=== PATIENT | male | born 1965 | race Caucasian/White ===

== ENCOUNTER → 2023-03-22 | Outpatient (CLI) | payer BC ==
--- NOTE | 2023-03-24 13:40 | MR ---
EXAMINATION TYPE: MR Prostate wo/w con DATE OF EXAM: 03/22/2023 COMPARISON: None. INDICATION: Prostate cancer. PSA: 12.3 ng/ml on 27/09/2023 increased from 5.9 on January 27, 2022 Recent Biopsy and Date: February 08, 2023 Pathology Report (If Applicable): Right lateral base adenocarcinoma recent grade 3+4 = 7, involving a pproximately 80% of tissue measuring 5 mm in length with focal perineural invasion. Right base adenoc arcinoma Jonah grade 3+4 = 7, approximate 60% of tissue measuring 4.5 mm in length total. Lateral m id biopsy adenocarcinoma Jonah grade 3+4 = 7, approximately 20% of tissue measuring 1.5 mm in lengt h with perineural invasion. Right mid biopsy adenocarcinoma Jonah grade 3+4 = 7, approximate 90% of tissue measuring 8 mm in length. Right lateral apex adenocarcinoma [address] grade 3+4 = 7, approximat [place] 40% of tissue measuring 3.5 mm in length. Right apex adenocarcinoma [address] grade 3+4 = 7, involv ing 70% of tissue measuring 4 mm in length. Left base adenocarcinoma Jonah grade 3+4 = 7, approximately 80% of tissue measuring 7 mm in length. Left mid biopsy adenocarcinoma Jonah grade 3+4 = 7, approximately 90% of tissue measuring 9.5 mm i n length. Left apex adenocarcinoma Jonah grade 3+4 = 7, approximately 95% of tissue measuring 9 mm in length. TECHNIQUE: Examination was performed using a 3T MRI without an endorectal coil. Multiparametric imaging was perf ormed with T2 mutliplanar sequences, axial diffusion weighted imaging and dynamic contrast enhanced i maging, utilizing 9.5 mL intravenous Gadavist gadolinium contrast. FINDINGS: There is no clinically significant cancer identified. PROSTATE VOLUME: 3.8 cm SI x 4.2 cm AP x 5.2 cm LR Vol= 43.45 cc PSA DENSITY: 0.28 ng/ml/cc Small area of increased T1 signal consistent with hemorrhage in the anterior mid zone laterally on th e right axial image 19 makes evaluation at this level slightly suboptimal. Enlarged prostate gland is present. Peripheral zone is prominent. The peripheral zone shows area of m ild to moderate diminished signal on ADC mapping with mild increased signal on diffusion-weighted lorenzo ging measuring 6 to 7 mm involving the left mid zone showing T2 hyperintensity axial image 17. There is additional 7 to 8 mm rounded area of byvw-[id number] hypointensity on ADC mapping with mild hyper intensity on diffusion-weighted imaging in the left lateral apex with T2 hypointensity image 112 seri es 705. These areas show overall diffuse contrast enhancement. PI-RADS 4 lesions. Heterogeneous small size transitional zone. Seminal vesicles are within normal limits. Prostate capsu le is maintained. Xnqsm-di-[id number] free fluid in the pelvis of uncertain etiology axial image 33. Urinary bladder shows mild to moderate concentric trabeculation and wall thickening. Sigmoid colonic diverticulosis. There is overall heterogeneity and visualized osseous structures. Some areas are suspicious with marisol ed diminished T1 signal. Same day bone scan could reflect SuperScan appearance. IMPRESSION: Mildly enlarged prostate gland. A few slightly suspicious areas noted as detailed above. Abnormal appearance of the osseous structures in which pelvic osseous metastatic disease must be cons idered. Highest Assessment Category: 4 MRI Stage: T1c N0 M1? based on review of pelvic images. False negative rates for MRI range from 5-20% depending on risk profile. Assessment Categories: 1 ? Very low (clinically significant cancer is highly unlikely to be present) 2 ? Low (clinically significant cancer is unlikely to be present) 3 ? Intermediate (the presence of clinically significant cancer is equivocal) 4 ? High (clinically significant cancer is likely to be present) 5 ? Very high (clinically significant cancer is highly likely to be present)
== END | disposition home or self-care (01) ==
LOC: RADMRIMAIN 08:00
PROVIDERS: ATTEND Urology
DX: C61 Malignant neoplasm of prostate (principal)
CPT/HCPCS: 72197; A9585

== ENCOUNTER → 2023-03-22 | Outpatient (CLI) | payer BC ==
--- NOTE | 2023-03-22 13:51 | NM ---
EXAMINATION TYPE: NM bone scan whole body DATE OF EXAM: 03/22/2023 COMPARISON: NONE HISTORY: Prostate cancer Delayed whole-body scanning was performed following the injection of 22.3 mCi Tc 99m MDP. Images acq uired 3.75 hours post injection. FINDINGS: There is no increased radiotracer uptake to suggest metastatic disease to the bone or other suspiciou s abnormality. Normal excretion into the bladder is noted. Some contamination inferior to this or uri ne leak is noted. IMPRESSION: As above.
== END | disposition home or self-care (01) ==
LOC: RADNMMAIN 07:49
PROVIDERS: ATTEND Radiology Radiation Oncology
DX: C61 Malignant neoplasm of prostate (principal)
CPT/HCPCS: 72197; 78306; A9503; A9585

== ENCOUNTER → 2023-03-29 | Outpatient (CLI) | payer BC | END | disposition home or self-care (01) | LOC: LABWHC1 15:48 | PROVIDERS: ATTEND Radiology Radiation Oncology | DX: Z53.9 Procedure and treatment not carried out, unspecified reason (principal) ==

== ENCOUNTER → 2023-04-23 | Outpatient (CLI) | payer BC ==
--- NOTE | 2023-04-24 17:42 | PE ---
EXAMINATION TYPE: PET CT fusion skull to thigh DATE OF EXAM: 04/23/2023 CLINICAL INDICATION:Male, 57 years old with history of ILLUCCIX; TECHNIQUE: Following the intravenous administration of 6.0 mCi of Ga-68 Illuccix (PSMA), whole body images are performed from the skull base to the midthigh. Images are reviewed on the computer in th e coronal, axial, and sagittal planes. Reconstructed rotating images are created on independent work station and reviewed on the computer. A non-contrast CT is performed in conjunction with the PET sc an. COMPARISON: CT None, PET/CT None, MRI for 03/22/2023 FINDINGS: Mediastinal SUV mean is 0.4. Hepatic parenchyma SUV mean is 2.4. SKULL BASE AND NECK: No suspicious radiotracer activity. CHEST, MEDIASTINUM, AND HILAR REGION: No suspicious radiotracer activity. ABDOMEN AND PELVIS: Abnormal right tracer activity within the prostate gland predominantly involving the base peripheral zone with extension into the central gland. Max SUV 12.3. OSSEOUS STRUCTURES: No suspicious radiotracer activity. Hernia prior MRI likely representing heteroge nous fatty marrow with red marrow conversion. OTHER CT: Atherosclerosis of the vasculature. Mild gynecomastia changes bilaterally. Mild emphysema c hanges. Posterior dependent atelectasis changes. There is fat stranding changes within the mid abdomen involving multiple loops of bowel on the right. Series 3 image 192. No evidence for bowel obstruction. Evaluation slightly limited with noncontrast technique. Radiotracer activity within this loop of bowel maximum SUV 4.7 there may be a focus of pne umoperitoneum series 3 image 25. There is wall thickening of the bowel in this region measuring up to 8 mm. IMPRESSION 1. Findings compatible with primary prostate adenocarcinoma, involving the base of the prostate glan d. No abnormal osseous uptake at this time to suggest metastatic disease. No evidence for metastatic disease at this time. 2. Fat stranding changes in the mesentery surrounding multiple loops of bowel with bowel wall thicke mario and or foci of pneumoperitoneum. Findings compatible with history of Crohn's disease. No evidenc e of bowel obstruction.
== END | disposition home or self-care (01) ==
LOC: RADPETMAIN 14:52
PROVIDERS: ATTEND Radiology Radiation Oncology
DX: C61 Malignant neoplasm of prostate (principal)
CPT/HCPCS: 78815; A9596

== ENCOUNTER → 2023-07-06 | Outpatient (CLI) | payer BC ==
[2023-07-06 20:35] LABS: ALT 14 U/L (10-49); AST 13 U/L (14-35); Alkaline Phosphatase 47 U/L (41-126); Blood Urea Nitrogen 11.9 mg/dL (9.0-27.0); Calcium 9.2 mg/dL (8.7-10.3); Chloride 104 mmol/L (96-109); Globulin 2.5 d/dL (1.6-3.3); Glucose 90 mg/dL (70-110); Potassium 4.4 mmol/L (3.5-5.5); Sodium 141 mmol/L (135-145); Total Bilirubin 0.3 mg/dL (0.3-1.2); Total Protein 6.5 d/dL (6.2-8.2)
[2023-07-06 21:38] LABS: Basophils # (A) 0.06 X 10*3/uL (0.00-0.10); Basophils % (A) 0.7 %; Eosinophils # (A) 0.39 X 10*3/uL (0.04-0.35); Eosinophils % (A) 4.5 %; HCT 41.4 % (39.6-50.0); HGB 13.7 d/dL (13.0-17.0); Lymphocytes # (A) 1.39 X 10*3/uL (0.90-5.00); Lymphocytes % (A) 15.9 %; MCH 30.2 pg (27.0-32.0); MCHC 33.1 d/dL (32.0-37.0); MCV 91.4 FL (80.0-97.0); Mean Platelet Volume 10.8 FL (9.5-12.2); Monocytes # (A) 0.53 X 10*3/uL (0.20-1.00); Monocytes % (A) 6.1 %; NRBC Per 100 WBC 0 X 10*3/uL (0.00-0.01); Neutrophils # (A) 6.34 X 10*3/uL (1.80-7.70); Neutrophils % (A) 72.6 %; Platelet Count 360 X 10*3/uL (140-440); RBC 4.53 X 10*6/uL (4.40-5.60); RDW 14.5 % (11.5-14.5); WBC 8.73 X 10*3/uL (4.50-10.00)
[2023-07-06 22:41] LABS: Erythrocyte Sedimentation Rate 11 mm/Hr (0-20)
== END | disposition home or self-care (01) ==
LOC: LABWHC1 14:14
PROVIDERS: ATTEND Internal Medicine Gastroenterology
DX: K50.90 Crohn's disease, unspecified, without complications (principal)
CPT/HCPCS: 36415; 80053; 85025; 85652; 86140

== ENCOUNTER → 2023-11-01 | Outpatient (CLI) | payer BC ==
[2023-11-02 03:51] LABS: Prostate Specific Antigen <0.01 ng/mL (0.000-4.500)
== END | disposition home or self-care (01) ==
LOC: LABWHC1 13:17
PROVIDERS: ATTEND Urology
DX: C61 Malignant neoplasm of prostate (principal)
CPT/HCPCS: 36415; 84153; 84403

== ENCOUNTER → 2023-12-16 | Outpatient (CLI) | payer BC ==
[2023-12-16 18:16] LABS: Basophils # (A) 0.05 X 10*3/uL (0.00-0.10); Basophils % (A) 0.7 %; Eosinophils # (A) 0.12 X 10*3/uL (0.04-0.35); Eosinophils % (A) 1.8 %; HCT 38.1 % (39.6-50.0); HGB 12.7 g/dL (13.0-17.0); Lymphocytes # (A) 1.52 X 10*3/uL (0.90-5.00); Lymphocytes % (A) 22.3 %; MCH 30.2 pg (27.0-32.0); MCHC 33.3 g/dL (32.0-37.0); MCV 90.5 FL (80.0-97.0); Mean Platelet Volume 10.5 FL (9.5-12.2); Monocytes # (A) 0.43 X 10*3/uL (0.20-1.00); Monocytes % (A) 6.3 %; NRBC Per 100 WBC 0 X 10*3/uL (0.00-0.01); Neutrophils # (A) 4.66 X 10*3/uL (1.80-7.70); Neutrophils % (A) 68.5 %; Platelet Count 293 X 10*3/uL (140-440); RBC 4.21 X 10*6/uL (4.40-5.60); RDW 12.6 % (11.5-14.5); WBC 6.81 X 10*3/uL (4.50-10.00)
== END | disposition home or self-care (01) ==
LOC: LABWHC1 14:39
PROVIDERS: ATTEND Surgery
DX: Z01.812 Encounter for preprocedural laboratory examination (principal); K43.0 Incisional hernia with obstruction, without gangrene; R00.1 Bradycardia, unspecified
CPT/HCPCS: 36415; 85025; 86850; 86900; 86901; 93005

== ENCOUNTER 2023-12-28 08:38 | Day surgery (SDC) | payer BC ==
[~2023-12-28 08:38] MED LIST: DEXAMETHASONE SOD PHOSPHATE 4 MG/ML 1 ML VIAL IV ONE; HYDROmorphone 0.5 MG/0.5 ML SYRINGE IVP PRN; LACTATED RINGERS 1,000 ML IV SCH; LIDOCAINE 1% (10MG/ML) FOR IV START INTRADERMA PRN; MIDAZOLAM 2 MG/2 ML VIAL IV PRN; ONDANSETRON 4 MG/2 ML VIAL IVP ONE
[2023-12-28] MEDS ORDERED: ACETAMINOPHEN TAB 500 MG TAB ONE (09:32)
[2023-12-28] MEDS ORDERED: ACETAMINOPHEN TAB 500 MG TAB PO ONE (09:41)
[2023-12-28] MEDS ORDERED: ONDANSETRON 4 MG/2 ML VIAL IVP ONE (09:42)
[2023-12-28] MEDS ORDERED: DEXAMETHASONE SOD PHOSPHATE 4 MG/ML 1 ML VIAL IVP ONE (09:43)
[2023-12-28] MEDS ORDERED: LACTATED RINGERS 1,000 ML IV ONE ×2 (09:50→11:03)
[2023-12-28] MEDS ORDERED: MIDAZOLAM 2 MG/2 ML VIAL IVP ONE (09:53)
[2023-12-28] MEDS ORDERED: KETAMINE HCL IN 0.9 % NACL 50 MG/5 ML SYRINGE ONE (10:10)
[2023-12-28] MEDS ORDERED: DEXAMETHASONE SOD PHOSPHATE 4 MG/ML 1 ML VIAL ONE (10:10)
[2023-12-28] MEDS ORDERED: ceFAZolin 1,000 MG VIAL ONE (10:10)
[2023-12-28] MEDS ORDERED: MIDAZOLAM 2 MG/2 ML VIAL ONE (10:10)
[2023-12-28] MEDS ORDERED: ROPIVACAINE 5 MG/ML 30 ML VIAL ONE (10:10)
[2023-12-28] MEDS ORDERED: SODIUM CHLORIDE 0.9% 100 ML BAG ONE (10:10)
[2023-12-28] MEDS ORDERED: HYDROmorphone (PF) 1 MG/ML ONE (10:10)
[2023-12-28] MEDS ORDERED: GLYCOPYRROLATE 0.2 MG/ML 2 ML VIAL ONE (10:10)
[2023-12-28] MEDS ORDERED: KETOROLAC 15 MG/ML 1 ML VIAL ONE (10:10)
[2023-12-28] MEDS ORDERED: NEOSTIGMINE 1 MG/ML 10 ML VIAL ONE (10:10)
[2023-12-28] MEDS ORDERED: fentaNYL (PF) 50 MCG/ML 2 ML AMP ONE (10:10)
[2023-12-28] MEDS ORDERED: PROPOFOL 10 MG/ML 20 ML VIAL IV ONE (10:10)
[2023-12-28] MEDS ORDERED: ROCURONIUM 10 MG/ML (5 ML VIAL) IV ONE (10:10)
[2023-12-28] MEDS ORDERED: SUCCINYLCHOLINE CHLORIDE 200 MG/10 ML VIAL IV ONE (10:10)
[2023-12-28] MEDS ORDERED: BUPIVACAINE (PF) 0.25% 30 ML VIAL SQ ONE ×3 (10:11→11:06)
[2023-12-28] MEDS ORDERED: CEFOXITIN IV ONE ×2 (10:16)
[2023-12-28] MEDS ORDERED: SODIUM CHLORIDE 0.9% IV ONE ×2 (10:16)
[2023-12-28] MEDS ORDERED: LIDOCAINE 2%-EPI 1:100,000 20 ML VIAL SQ ONE (10:37)
--- NOTE | 2023-12-28 11:19 | P.OP ---
Date of Procedure: 12/28/23 Preoperative Diagnosis: Incisional hernia Postoperative Diagnosis: Incisional hernia Procedure(s) Performed: Laparoscopic robotic cyst repair of incisional hernia Transversus abdominis plane block Anesthesia: MARIA M Surgeon: Fausto Nunez Estimated Blood Loss (ml): 5 Pathology: none sent Condition: stable Disposition: PACU Description of Procedure: The patient was placed on the operating table in the supine position. He received general anesthesia. His abdomen was prepped and draped usual fashion. Using a 5 mm optical trocar under direct visualization the peritoneal cavity was entered in the left upper quadrant. The abdomen was then insufflated. The laparoscope was placed back into the perineal cavity. Next a 8 mm robotic trocar was placed in the left lower quadrant and a 12 mm robotic trocar was placed in the left lateral position. The original 5 mm trocar was exchanged for a 8 mm robotic trocar. A four-quadrant transverses abdominal plane block was performed with 1% local Xylocaine. The patient's placed in the left side up position. And the patient was docked to the robot. The incisional hernia was visualized. Using hook cautery the peritoneum over the incisional hernia was excised. The fascial opening was repaired using 0V LOC suture. Next a piece of 11 cm round ventral light ST mesh was placed into the. Cavity and secured with 2 OV lock suture. The patient was undocked the robot. The needles were retrieved. The fascia of the 12 mm trocar site was closed with 0 Ethibond suture. Skin was closed interrupted 3-0 Monocryl suture. Dermabond dressings was applied. Patient tolerated procedure well and was sent to recovery room stable condition.
--- NOTE | 2023-12-28 11:40 | P.ANPRN ---
Procedure Note - Anesthesia - Nerve Block Performed Bilateral Erector Spinae Single Time Out Performed: Yes Date of Procedure: 12/28/23 Procedure Start Time: 09:52 Procedure Stop Time: 10:04 Location of Patient: PreOp Indication: Acute Post-Operative Pain, Requested by Surgeon Sedation Type: Sedate with meaningful contact maintained Preparation: Sterile Prep Position: Prone Needle Types: Pajunk Needle Gauge: 21 Ultrasound used to visualize needle placement: Yes Ultrasound used to observe medication spread: Yes Blood Aspirated: No Pain Paresthesia on Injection Noted: No Resistance on Injection: Normal Image Stored and Saved: Yes Events: Uneventful and Well Tolerated (Ropivacaine 0.5% 15 cc plus normal saline 10 cc plus dexamethasone 4 mg continued bilaterally at L1)
[2023-12-28 11:42] VITALS: TEMP 97
[2023-12-28 12:12] VITALS: RESP 16
[2023-12-28 12:41] VITALS: BP 156/85; PULSE 54
== END 2023-12-28 12:54 | disposition home or self-care (01) ==
LOC: OR 08:38
PROVIDERS: ATTEND Surgery
DX: K43.2 Incisional hernia without obstruction or gangrene (principal); K50.90 Crohn's disease, unspecified, without complications; K21.9 Gastro-esophageal reflux disease without esophagitis; Z85.46 Personal history of malignant neoplasm of prostate; Z79.899 Other long term (current) drug therapy; Z98.890 Other specified postprocedural states
CPT/HCPCS: 49591; S2900; 64999

== ENCOUNTER → 2024-01-28 | Outpatient (CLI) | payer BC ==
[2024-01-28 18:33] LABS: ALT 14 U/L (10-49); AST 13 U/L (14-35)
[2024-01-28 18:58] LABS: Prostate Specific Antigen <0.01 ng/mL (0.000-4.500)
== END | disposition home or self-care (01) ==
LOC: LABWHC1 14:17
PROVIDERS: ATTEND Urology
DX: C61 Malignant neoplasm of prostate (principal); K76.9 Liver disease, unspecified
CPT/HCPCS: 36415; 84153; 84450; 84460

== ENCOUNTER → 2024-02-04 | Day surgery (SDC) | payer BC ==
[2024-02-04 08:57] VITALS: BP 113/75; PULSE 58; RESP 18; TEMP 98
[2024-02-04] MEDS: GLUCAGON 1 MG/ML VIAL IM STA (09:31)
--- NOTE | 2024-02-06 17:13 | MR ---
EXAMINATION TYPE: MR Enterography DATE OF EXAM: 02/04/2024 10:14 AM COMPARISON: 04/23/2023 at/CT CLINICAL INDICATION: Male 58 years old with a history of K50.90 Crohn's disease. LLQ abdominal pain, Crohn's disease, hx prostate cancer. TECHNIQUE: Standard multiplanar, multisequence imaging of the abdomen is performed without and with I V contrast, patient is injected with 1350 mL intravenous Gadavist gadolinium contrast. Oral NeuLumEX was given as per enterography protocol. FINDINGS: LOWER CHEST: No significant findings. ABDOMEN Bowel: Circumferential terminal ileum wall thickening measuring up to 5 mm near the ileocecal valve. This extends a short distance upstream where there is tethering of multiple loops of terminal ileum. There is low T1 signal extending between compatible with fistula formation series 801 image 55 . Ther e is upstream dilation of the small bowel loop entering this region series 501 image 12 and relativel y nondistention of the remainder of the bowel extending to the cecum. Another suspected fistula on se chung 501 image 11 attending from this region of terminal ileum to a loop of bowel upstream is present . This grouped loop of terminal ileum does demonstrate mucosal hyperenhancement on postcontrast imagi ng. The small bowel distention is inadequate proximally. No definite evidence to suggest abnormal bowel wall thickening involving a small bowel or large bowel. No evidence of bowel obstruction. No evidenc e for mucosal hyperenhancement, stricture or fistulous tract formation. Peritoneum: No evidence of pneumoperitoneum, free fluid, or adenopathy. Liver: Unremarkable. Gallbladder and Bile ducts: Unremarkable. Pancreas: Unremarkable. Spleen: Unremarkable. Adrenal glands: Unremarkable. Kidneys: Unremarkable. Bladder: Unremarkable. Reproductive: Unremarkable. Lymph Nodes: Vasculature: Unremarkable. No aortic aneurysm. Musculoskeletal: The osseous structures appear intact. Abdominal wall: Unremarkable. IMPRESSION: Evidence of active Crohn's disease with sequela of chronic Crohn's disease. Circumferential wall thic kening of the terminal ileum with multiple loops of terminal ileum tethered together demonstrating mu ltidirectional fistula formation between them. Fistula extending to other loops of bowel also present . There is at least a partial bowel obstruction from this area of active Crohn's disease.
== END ==
LOC: RADMRIMAIN 07:55
PROVIDERS: ATTEND Internal Medicine Gastroenterology
DX: K50.90 Crohn's disease, unspecified, without complications (principal); Z85.46 Personal history of malignant neoplasm of prostate
CPT/HCPCS: 96372; 72197; 74183; J1610; A9585

== ENCOUNTER → 2024-02-16 | Outpatient (CLI) | payer BC ==
[2024-02-16 17:00] LABS: Basophils # (A) 0.03 X 10*3/uL (0.00-0.10); Basophils % (A) 0.5 %; Eosinophils # (A) 0.04 X 10*3/uL (0.04-0.35); Eosinophils % (A) 0.6 %; HCT 38.3 % (39.6-50.0); HGB 13.1 g/dL (13.0-17.0); Lymphocytes # (A) 1.16 X 10*3/uL (0.90-5.00); Lymphocytes % (A) 17.8 %; MCH 29.7 pg (27.0-32.0); MCHC 34.2 g/dL (32.0-37.0); MCV 86.8 FL (80.0-97.0); Mean Platelet Volume 10.3 FL (9.5-12.2); Monocytes # (A) 0.41 X 10*3/uL (0.20-1.00); Monocytes % (A) 6.3 %; NRBC Per 100 WBC 0 X 10*3/uL (0.00-0.01); Neutrophils # (A) 4.87 X 10*3/uL (1.80-7.70); Neutrophils % (A) 74.6 %; Platelet Count 321 X 10*3/uL (140-440); RBC 4.41 X 10*6/uL (4.40-5.60); RDW 12.5 % (11.5-14.5); WBC 6.52 X 10*3/uL (4.50-10.00)
[2024-02-16 17:21] LABS: Erythrocyte Sedimentation Rate 10 mm/Hr (0-20)
[2024-02-16 17:31] LABS: ALT 13 U/L (10-49); AST 14 U/L (14-35); Albumin/Globulin Ratio 1.74 Ratio (1.60-3.17); Alkaline Phosphatase 61 U/L (41-126); Blood Urea Nitrogen 11.2 mg/dL (9.0-27.0); Calcium 9.3 mg/dL (8.7-10.3); Carbon Dioxide 26.6 mmol/L (21.6-31.8); Chloride 106 mmol/L (96-109); Globulin 2.3 g/dL (1.6-3.3); Glucose 92 mg/dL (70-110); Potassium 3.5 mmol/L (3.5-5.5); Sodium 145 mmol/L (135-145); Total Bilirubin 0.3 mg/dL (0.3-1.2); Total Protein 6.3 g/dL (6.2-8.2)
[2024-02-16 17:52] LABS: Hepatitis B Surface Antigen Nonreactive; Hepatitis C IgG Antibody Nonreactive
== END | disposition home or self-care (01) ==
LOC: LABWHC1 11:09
PROVIDERS: ATTEND Internal Medicine Gastroenterology
DX: K50.90 Crohn's disease, unspecified, without complications (principal)
CPT/HCPCS: 36415; 80053; 85025; 85652; 86140; 86480; 86704; 86803; 87340

== ENCOUNTER → 2024-03-08 | Outpatient (CLI) | payer BC ==
--- NOTE | 2024-03-08 14:22 | CT ---
EXAMINATION TYPE: CT abdomen pelvis w con DATE OF EXAM: 03/08/2024 COMPARISON: PET/CT 04/23/2023 INDICATION: llq PAIN DLP: 941.3 mGycm, Automated exposure control for dose reduction was used. CONTRAST: 100 mL of Isovue 300. Study performed with Oral Contrast TECHNIQUE: Axial images were obtained from above the diaphragm to the pubic rami in the axial plane a t 5 mm thick sections. Reconstructed images are reviewed on the computer in the coronal plane. FINDINGS: Limited CT sections are obtained the lung bases. The lung bases are clear. CT ABDOMEN: Liver: Normal Spleen: Normal Pancreas: Normal Adrenal glands: The adrenal glands are normal. Gallbladder: Normal Kidneys: No masses are evident. No hydronephrosis is present. No cysts are present. Delayed images were obtained through the kidneys, which remain unremarkable. Aorta: Vascular calcification is within the aorta. Inferior vena cava: Normal. CT PELVIS: There is diffuse thickening through the hepatic flexure. Correlate for colitis. This area was abnorma l on the PET/CT. Consider posterior evaluation with colonoscopy. There is a report of prior Crohn's d isease which could be considered within the differential. The distal sigmoid colon appears normal. Si gnificant diverticular changes are not evident. No suspicious inflammatory changes or wall thickening is evident left lower quadrant. There are loops of bowel lacking oral contrast or incompletely diste nded limiting their evaluation. Appendix: Normal as visualized. Urinary bladder: Normal. Genitourinary structures: Prostate is not well visualized Osseous structures: No suspicious lytic or sclerotic lesions. IMPRESSION: 1. Hepatic flexure wall thickening of the colon. Correlate for colitis. Follow-up is recommended. 2. Left lower quadrant abnormality to account for pain is not identified.
== END | disposition home or self-care (01) ==
LOC: RADCTMAIN 10:25
PROVIDERS: ATTEND Surgery
DX: K50.90 Crohn's disease, unspecified, without complications (principal); K31.89 Other diseases of stomach and duodenum
CPT/HCPCS: 74177; Q9967

== ENCOUNTER → 2024-08-01 | Outpatient (CLI) | payer BC ==
[2024-08-01 16:22] LABS: Appearance,Urine Clear (Clear); Bilirubin,Urine Negative (Negative); Blood,Urine Negative (Negative); Color,Urine Yellow (Yellow); Ketones,Urine Negative (Negative); Nitrite,Urine Negative (Negative); Specific Gravity,Urine 1.023 (1.001-1.030); Urobilinogen,Urine 0.2 E.U./DL
[2024-08-01 16:48] LABS: HGB 13.8 g/dL (13.0-17.0); MCH 29.8 pg (27.0-32.0); MCHC 33.7 g/dL (32.0-37.0); MCV 88.6 FL (80.0-97.0); NRBC Per 100 WBC 0 X 10*3/uL (0.00-0.01); Platelet Count 256 X 10*3/uL (140-440); RBC 4.63 X 10*6/uL (4.40-5.60); RDW 12.7 % (11.5-14.5); WBC 6.64 X 10*3/uL (4.50-10.00)
[2024-08-01 17:12] LABS: Chol/HDL Ratio 2.67 Ratio; Magnesium 1.7 mg/dL (1.5-2.4); VLDL Calculation 11.54 mg/dL (5.00-40.00)
[2024-08-01 17:13] LABS: ALT 20 U/L (10-49); AST 19 U/L (14-35); Albumin 4.1 g/dL (3.8-4.9); Albumin/Globulin Ratio 1.86 Ratio (1.60-3.17); Alkaline Phosphatase 68 U/L (41-126); BUN/Creat Ratio 18.88 Ratio (12.00-20.00); Blood Urea Nitrogen 15.1 mg/dL (9.0-27.0); Calcium 9.1 mg/dL (8.7-10.3); Carbon Dioxide 25.5 mmol/L (21.6-31.8); Chloride 103 mmol/L (96-109); Globulin 2.2 g/dL (1.6-3.3); Glucose 97 mg/dL (70-110); LDL Cholesterol,Calculated 74.9 mg/dL (0.0-131.0); Potassium 4.9 mmol/L (3.5-5.5); Sodium 139 mmol/L (135-145); Total Bilirubin 0.5 mg/dL (0.3-1.2); Total Protein 6.3 g/dL (6.2-8.2)
[2024-08-01 18:05] LABS: Prostate Specific Antigen <0.01 ng/mL (0.000-4.500)
== END | disposition home or self-care (01) ==
LOC: LABWHC1 10:08
PROVIDERS: ATTEND Urology
DX: Z00.00 Encounter for general adult medical examination without abnormal findings (principal); C61 Malignant neoplasm of prostate
CPT/HCPCS: 36415; 80053; 80061; 81003; 82306; 82607; 83036; 83735; 84153; 84403; 85027

== ENCOUNTER → 2024-08-04 | Outpatient (CLI) | payer BC | END | disposition home or self-care (01) | LOC: LABWHC1 15:12 | PROVIDERS: ATTEND Family Medicine | DX: K50.90 Crohn's disease, unspecified, without complications (principal) | CPT/HCPCS: 36415; 83921 ==

== ENCOUNTER → 2025-01-29 | Outpatient (CLI) | payer BC ==
[2025-01-29 16:32] LABS: Prostate Specific Antigen <0.01 ng/mL (0.000-4.500)
== END | disposition home or self-care (01) ==
LOC: LABWHC1 11:20
PROVIDERS: ATTEND Family Medicine
DX: C61 Malignant neoplasm of prostate (principal)
CPT/HCPCS: 36415; 84153; 84403

== ENCOUNTER → 2025-02-28 | Outpatient (CLI) | payer BC ==
[2025-02-28 15:04] LABS: Basophils # (A) 0.04 X 10*3/uL (0.00-0.10); Basophils % (A) 0.6 %; Eosinophils # (A) 0.08 X 10*3/uL (0.04-0.35); Eosinophils % (A) 1.2 %; HCT 41.2 % (39.6-50.0); HGB 13.9 g/dL (13.0-17.0); Lymphocytes # (A) 1.18 X 10*3/uL (0.90-5.00); Lymphocytes % (A) 17.5 %; MCH 29.6 pg (27.0-32.0); MCHC 33.7 g/dL (32.0-37.0); MCV 87.8 FL (80.0-97.0); Mean Platelet Volume 10.6 FL (9.5-12.2); Monocytes # (A) 0.38 X 10*3/uL (0.20-1.00); Monocytes % (A) 5.6 %; NRBC Per 100 WBC 0 X 10*3/uL (0.00-0.01); Neutrophils # (A) 5.03 X 10*3/uL (1.80-7.70); Neutrophils % (A) 74.8 %; Platelet Count 264 X 10*3/uL (140-440); RBC 4.69 X 10*6/uL (4.40-5.60); WBC 6.73 X 10*3/uL (4.50-10.00)
[2025-02-28 15:13] LABS: ALT 11 U/L (10-49); AST 17 U/L (14-35); Albumin 3.9 g/dL (3.8-4.9); Albumin/Globulin Ratio 1.77 Ratio (1.60-3.17); Alkaline Phosphatase 60 U/L (41-126); BUN/Creat Ratio 14.43 Ratio (12.00-20.00); Blood Urea Nitrogen 10.1 mg/dL (9.0-27.0); Calcium 8.7 mg/dL (8.7-10.3); Carbon Dioxide 26.1 mmol/L (21.6-31.8); Chloride 107 mmol/L (96-109); Globulin 2.2 g/dL (1.6-3.3); Glucose 102 mg/dL (70-110); Potassium 4.5 mmol/L (3.5-5.5); Sodium 141 mmol/L (135-145); Total Bilirubin 0.3 mg/dL (0.3-1.2); Total Protein 6.1 g/dL (6.2-8.2)
[2025-02-28 16:00] LABS: Erythrocyte Sedimentation Rate 7 mm/Hr (0-20)
== END | disposition home or self-care (01) ==
LOC: LABWHC1 12:36
PROVIDERS: ATTEND Internal Medicine Gastroenterology
DX: K50.90 Crohn's disease, unspecified, without complications (principal)
CPT/HCPCS: 36415; 80053; 85025; 85652; 86140

== ENCOUNTER → 2025-05-08 | Outpatient (CLI) | payer BC ==
[2025-05-08 19:33] LABS: ALT 10 U/L (10-49); AST 17 U/L (14-35); Alkaline Phosphatase 51 U/L (41-126); BUN/Creat Ratio 12.25 Ratio (12.00-20.00); Blood Urea Nitrogen 9.8 mg/dL (9.0-27.0); Calcium 8.8 mg/dL (8.7-10.3); Carbon Dioxide 25.2 mmol/L (21.6-31.8); Chloride 107 mmol/L (96-109); Globulin 2.1 g/dL (1.6-3.3); Glucose 88 mg/dL (70-110); Potassium 4.3 mmol/L (3.5-5.5); Sodium 142 mmol/L (135-145); Total Bilirubin 0.3 mg/dL (0.3-1.2); Total Protein 6.1 g/dL (6.2-8.2)
[2025-05-08 20:15] LABS: Basophils # (A) 0.04 X 10*3/uL (0.00-0.10); Basophils % (A) 0.6 %; Eosinophils # (A) 0.09 X 10*3/uL (0.04-0.35); Eosinophils % (A) 1.4 %; HCT 39.7 % (39.6-50.0); HGB 13.3 g/dL (13.0-17.0); Lymphocytes # (A) 1.35 X 10*3/uL (0.90-5.00); Lymphocytes % (A) 21.7 %; MCH 29.6 pg (27.0-32.0); MCHC 33.5 g/dL (32.0-37.0); MCV 88.2 FL (80.0-97.0); Mean Platelet Volume 11.2 FL (9.5-12.2); Monocytes # (A) 0.39 X 10*3/uL (0.20-1.00); Monocytes % (A) 6.3 %; NRBC Per 100 WBC 0 X 10*3/uL (0.00-0.01); Neutrophils # (A) 4.35 X 10*3/uL (1.80-7.70); Neutrophils % (A) 69.8 %; Platelet Count 269 X 10*3/uL (140-440); RDW 13.3 % (11.5-14.5); WBC 6.23 X 10*3/uL (4.50-10.00)
== END | disposition home or self-care (01) ==
LOC: LABWHC1 15:37
PROVIDERS: ATTEND Internal Medicine Gastroenterology
DX: K50.90 Crohn's disease, unspecified, without complications (principal)
CPT/HCPCS: 36415; 80053; 85025; 86480

== ENCOUNTER → 2025-06-04 | Outpatient (CLI) | payer BC ==
--- NOTE | 2025-06-04 10:21 | MR ---
INDICATION: Patient age:Male; 59 years old; Reason for study: M54.6 RADICULOPATHY, LUMB REGION; [facility]. COMPARISONS: CT abdomen and pelvis 03/08/2024. TECHNIQUE: Multi planar, multi sequence imaging was performed utilizing: T1-weighted, T2-weighted, a nd turbo inversion recovery imaging of the lumbar spine. The patient was not given contrast. FINDINGS: The lumbar vertebral bodies do have preserved heights. Mild levocurvature of the lumbar sp ine with apex at L3-L4. Grade 1 retrolisthesis of L3 on L4. L2 level anterior osteophytosis. Heteroge nous bone marrow signal. No abnormal STIR signal. Type II Modic changes involving the endplates aroun d L5-S1 disc. Multilevel disc desiccation is present. The conus medullaris and the distal spinal cor d do appear unremarkable with regards to their signal intensity and morphology. T12-L1: No significant disc pathology is identified. The spinal canal and neural foramen are patent L1-L2: No significant disc pathology is identified. The spinal canal and neural foramen are patent. L2-L3: Broad-based disc bulge without significant spinal canal stenosis. Bilateral facet joint enlar gement. No significant neural foramina stenosis. L3-L4: Broad-based disc bulge without significant spinal canal stenosis. Left neural foramen is connors nt. Mild right neural foraminal stenosis. L4-L5: Broad-based disc bulge. Ligamentum flavum buckling. Bilateral facet arthropathy. No significan t spinal canal stenosis. Moderate to severe left and mild right neural foraminal stenosis. L5-S1: The intervertebral disc appears round on its contour posteriorly without significant mass eff ect upon the thecal sac. Bilateral facet arthropathy. Right neural foramen is patent. Mild left neura l foraminal stenosis. Other significant findings: None. IMPRESSION: 1. No definitive evidence for disc herniation or significant spinal canal stenosis. 2. Multilevel disc degeneration with associated osteoarthritic changes. Moderate to severe left neur al foraminal stenosis at L4-L5 secondary to facet arthropathy and disc bulge. 3. Mild levocurvature of the lumbar spine with apex at L3-L4. 4. Grade 1 retrolisthesis of L3 on L4. [facility], , 06/04/2025 10:19 AM
== END | disposition home or self-care (01) ==
LOC: RADMRIMAIN 08:56
PROVIDERS: ATTEND Family Medicine
DX: M48.061 Spinal stenosis, lumbar region without neurogenic claudication (principal); M51.16 Intervertebral disc disorders with radiculopathy, lumbar region; M43.16 Spondylolisthesis, lumbar region; M47.26 Other spondylosis with radiculopathy, lumbar region
CPT/HCPCS: 72148